=== PATIENT | female | born 1970 | race Caucasian/White ===

== ENCOUNTER → 2017-05-09 | Outpatient (CLI) | payer BC ==
--- NOTE | 2017-05-09 15:35 | US ---
EXAMINATION TYPE: US thyroid st tissue head/neck DATE OF EXAM: 05/09/2017 COMPARISON: NONE CLINICAL HISTORY: E079 THYROID DISORDER. Abnormal labs per patient GLAND SIZE: Right Lobe: 3.7 x 1.3 x 1.5 cm Overall Parenchyma: homogenous Left Lobe: 3.7 x 1.4 x 1.4 cm Overall Parenchyma: homogeneous Isthmus Thickness: 0.3 cm NODULES RIGHT: # of nodules measured on right: 0 LEFT: # of nodules measured on left: 0 ISTHMUS: # of nodules measured in the isthmus: 0 Bilateral neck scanned, no evidence of lymphadenopathy. IMPRESSION: Unremarkable thyroid ultrasound. No discrete nodule, no thyroid enlargement, no heterogeneity and no hypervascularity.
== END | disposition home or self-care (01) ==
LOC: RADUSWWP 14:48
PROVIDERS: ATTEND Family Medicine
DX: E07.9 Disorder of thyroid, unspecified (principal)
CPT/HCPCS: 76536

== ENCOUNTER 2019-09-11 09:34 | Emergency (ER) | payer BC ==
[2019-09-11 09:39] VITALS: BP 117/81; PULSE 69; RESP 18; TEMP 97.4
[2019-09-11] MEDS ORDERED: KETOROLAC 30 MG/ML 1 ML VIAL IVP STA (09:56)
[2019-09-11] MEDS ORDERED: ONDANSETRON 4 MG/2 ML VIAL IVP STA (09:56)
[2019-09-11] MEDS ORDERED: SODIUM CHLORIDE 0.9% 1,000 ML IV STA ×2 (09:56)
--- NOTE | 2019-09-11 10:06 | ED ---
Abdominal Pain HPI - General Chief Complaint: Abdominal Pain Stated Complaint: Side Pain Time Seen by Provider: 09/11/19 09:44 Source: patient, RN notes reviewed, old records reviewed Mode of arrival: ambulatory Limitations: no limitations - History of Present Illness Initial Comments: Elina is a 49-year-old female who presents emergency department today with right- sided lower abdominal pain with radiation towards right flank worsening over the past week. She reports that she's been having intermittent pains like this for the past 2 years. She reports that she has not had a menstrual period in many years after having no pressure procedure done. She states that she's had no vomiting but does feel nauseated. She denies any changes in urination and did have a bowel movement yesterday. - Related Data Home Medications Medication Instructions Recorded Confirmed Multivitamins, Thera [Multivitamin 1 tab PO DAILY 09/11/19 09/11/19 (formulary)] Oxybutynin ER [Ditropan Xl] 15 mg PO DAILY 09/11/19 09/11/19 Previous Rx's Medication Instructions Recorded Polyethylene Glycol 3350 [Miralax] 17 gm PO ONCE #527 gm 09/11/19 bisacodyL [Dulcolax] 10 mg PO ONCE #12 tablet. 09/11/19 Allergies Allergy/AdvReac Type Severity Reaction Status Date / Time codeine Allergy Swelling Verified 09/11/19 10:40 Review of Systems ROS Statement: Those systems with pertinent positive or pertinent negative responses have been documented in the HPI. ROS Other: All systems not noted in ROS Statement are negative. Past Medical History Additional Past Medical History / Comment(s): MS History of Any Multi-Drug Resistant Organisms: None Reported Past Surgical History: Appendectomy, Section Additional Past Surgical History / Comment(s): exploratory Lap Past Psychological History: No Psychological Hx Reported Smoking Status: Never smoker Past Alcohol Use History: None Reported Past Drug Use History: None Reported General Exam - General Exam Comments Initial Comments: 49-year-old female. Alert and oriented. No distress. Limitations: no limitations General appearance: alert, in no apparent distress Head exam: Present: atraumatic, normocephalic, normal inspection Eye exam: Present: normal appearance, PERRL, EOMI. Absent: scleral icterus, conjunctival injection, periorbital swelling ENT exam: Present: normal exam, mucous membranes moist Neck exam: Present: normal inspection. Absent: tenderness, meningismus, lymphadenopathy Respiratory exam: Present: normal lung sounds bilaterally. Absent: respiratory distress, wheezes, rales, rhonchi, stridor Cardiovascular Exam: Present: regular rate, normal rhythm, normal heart sounds. Absent: systolic murmur, diastolic murmur, rubs, gallop, clicks GI/Abdominal exam: Present: soft, tenderness (RLQ tenderness), normal bowel sounds. Absent: distended, guarding, rebound, rigid Extremities exam: Present: normal inspection, full ROM, normal capillary refill. Absent: tenderness, pedal edema, joint swelling, calf tenderness Back exam: Present: normal inspection Neurological exam: Present: alert, oriented X3, CN II-XII intact Course Vital Signs 09/11/19 09/11/19 09/11/19 09:36 09:39 10:39 Temperature 97.4 F L Pulse Rate 69 Respiratory 18 18 18 Rate Blood Pressure 117/81 O2 Sat by Pulse 100 Oximetry 09/11/19 11:39 Temperature Pulse Rate Respiratory 18 Rate Blood Pressure O2 Sat by Pulse Oximetry Medical Decision Making - Medical Decision Making 49-year-old female presents emergency department today for evaluation for concern for right-sided abdominal pain. She's been having intermittent pain for 2 years. This pain has been worse over the past 2 weeks. Labs reviewed today and unremarkable. Due to persistent pain, CT abdomen pelvis was completed. This was negative for any acute findings related to patient's symptoms of pain. I discussed patient's pelvic primary care doctor. Discussed return parameters. - Lab Data Result diagrams: 09/11/19 10:11 09/11/19 09:56 Lab Results 09/11/19 09/11/19 09/11/19 Range/Units 09:56 10:11 10:11 WBC 9.2 (3.8-10.6) k/uL RBC 5.03 (3.80-5.40) m/uL Hgb 14.6 (11.4-16.0) gm/dL Hct 43.1 (34.0-46.0) % MCV 85.7 (80.0-100.0) fL MCH 29.0 (25.0-35.0) pg MCHC 33.8 (31.0-37.0) g/dL RDW 12.4 (11.5-15.5) % Plt Count 355 (150-450) k/uL Neutrophils % 72 % Lymphocytes % 21 % Monocytes % 4 % Eosinophils % 1 % Basophils % 1 % Neutrophils # 6.6 (1.3-7.7) k/uL Lymphocytes # 1.9 (1.0-4.8) k/uL Monocytes # 0.4 (0-1.0) k/uL Eosinophils # 0.1 (0-0.7) k/uL Basophils # 0.1 (0-0.2) k/uL PT 11.4 (9.0-12.0) sec INR 1.1 (<1.2) APTT 24.8 (22.0-30.0) sec Sodium 139 (137-145) mmol/L Potassium 4.3 (3.5-5.1) mmol/L Chloride 104 (98-107) mmol/L Carbon Dioxide 27 (22-30) mmol/L Anion Gap 8 mmol/L BUN 11 (7-17) mg/dL Creatinine 0.66 (0.52-1.04) mg/dL Est GFR (CKD-EPI)AfAm >90 (>60 ml/min/1.73 sqM) Est GFR (CKD-EPI)NonAf >90 (>60 ml/min/1.73 sqM) Glucose 98 (74-99) mg/dL Plasma Lactic Acid Sha (0.7-2.0) mmol/L Calcium 10.0 (8.4-10.2) mg/dL Total Bilirubin 0.5 (0.2-1.3) mg/dL AST 20 (14-36) U/L ALT 14 (4-34) U/L Alkaline Phosphatase 54 (38-126) U/L Total Protein 7.8 (6.3-8.2) g/dL Albumin 4.8 (3.5-5.0) g/dL Amylase 76 (30-110) U/L Lipase 87 (23-300) U/L Urine Color Urine Appearance (Clear) Urine pH (5.0-8.0) Ur Specific Rocky (1.001-1.035) Urine Protein (Negative) Urine Glucose (UA) (Negative) Urine Ketones (Negative) Urine Blood (Negative) Urine Nitrite (Negative) Urine Bilirubin (Negative) Urine Urobilinogen (<2.0) mg/dL Ur Leukocyte Esterase (Negative) Urine RBC (0-5) /hpf Urine WBC (0-5) /hpf Ur Squamous Epith Cells (0-4) /hpf Urine Bacteria (None) /hpf 09/11/19 09/11/19 Range/Units 10:11 10:11 WBC (3.8-10.6) k/uL RBC (3.80-5.40) m/uL Hgb (11.4-16.0) gm/dL Hct (34.0-46.0) % MCV (80.0-100.0) fL MCH (25.0-35.0) pg MCHC (31.0-37.0) g/dL RDW (11.5-15.5) % Plt Count (150-450) k/uL Neutrophils % % Lymphocytes % % Monocytes % % Eosinophils % % Basophils % % Neutrophils # (1.3-7.7) k/uL Lymphocytes # (1.0-4.8) k/uL Monocytes # (0-1.0) k/uL Eosinophils # (0-0.7) k/uL Basophils # (0-0.2) k/uL PT (9.0-12.0) sec INR (<1.2) APTT (22.0-30.0) sec Sodium (137-145) mmol/L Potassium (3.5-5.1) mmol/L Chloride (98-107) mmol/L Carbon Dioxide (22-30) mmol/L Anion Gap mmol/L BUN (7-17) mg/dL Creatinine (0.52-1.04) mg/dL Est GFR (CKD-EPI)AfAm (>60 ml/min/1.73 sqM) Est GFR (CKD-EPI)NonAf (>60 ml/min/1.73 sqM) Glucose (74-99) mg/dL Plasma Lactic Acid Sha 0.7 (0.7-2.0) mmol/L Calcium (8.4-10.2) mg/dL Total Bilirubin (0.2-1.3) mg/dL AST (14-36) U/L ALT (4-34) U/L Alkaline Phosphatase (38-126) U/L Total Protein (6.3-8.2) g/dL Albumin (3.5-5.0) g/dL Amylase (30-110) U/L Lipase (23-300) U/L Urine Color Light Yellow Urine Appearance Clear (Clear) Urine pH 6.5 (5.0-8.0) Ur Specific Rocky 1.006 (1.001-1.035) Urine Protein Negative (Negative) Urine Glucose (UA) Negative (Negative) Urine Ketones Trace H (Negative) Urine Blood Negative (Negative) Urine Nitrite Negative (Negative) Urine Bilirubin Negative (Negative) Urine Urobilinogen <2.0 (<2.0) mg/dL Ur Leukocyte Esterase Trace H (Negative) Urine RBC 1 (0-5) /hpf Urine WBC 3 (0-5) /hpf Ur Squamous Epith Cells 1 (0-4) /hpf Urine Bacteria Occasional H (None) /hpf - Radiology Data Radiology results: report reviewed CT abdomen shows no acute findings to account for patient's clinical symptoms of right-sided abdominal pain. Disposition Clinical Impression: Right sided abdominal pain Disposition: HOME SELF-CARE Condition: Good Instructions (If sedation given, give patient instructions): Abdominal Pain (ED) Additional Instructions: Please use medication as discussed, continue stool softeners to see if this will help with symptoms. Please follow up with family doctor if symptoms have not improved over the next two days. Please return to the emergency room if your symptoms increase or worsen or for any other concerns. Prescriptions: bisacodyL [Dulcolax] 10 mg PO ONCE #12 tablet. Polyethylene Glycol 3350 [Miralax] 17 gm PO ONCE #527 gm Is patient prescribed a controlled substance at d/c from ED?: No Referrals: Migue Jeffery DO [Primary Care Provider] - 1-2 days Time of Disposition: 12:08
[2019-09-11 10:25] LABS: Basophils # (A) 0.1 k/uL (0-0.2); Basophils % (A) 1 %; Eosinophils # (A) 0.1 k/uL (0-0.7); Eosinophils % (A) 1 %; HCT 43.1 % (34.0-46.0); HGB 14.6 gm/dL (11.4-16.0); Lymphocytes # (A) 1.9 k/uL (1.0-4.8); Lymphocytes % (A) 21 %; MCHC 33.8 g/dL (31.0-37.0); MCV 85.7 fL (80.0-100.0); Mean Platelet Volume 7.1; Monocytes # (A) 0.4 k/uL (0-1.0); Monocytes % (A) 4 %; Neutrophils # (A) 6.6 k/uL (1.3-7.7); Neutrophils % (A) 72 %; Platelet Count 355 k/uL (150-450); RBC 5.03 m/uL (3.80-5.40); RDW 12.4 % (11.5-15.5); WBC 9.2 k/uL (3.8-10.6)
[2019-09-11 10:33] LABS: ALT 14 U/L (4-34); AST 20 U/L (14-36); African American GFR (CKD) >90 (>60 ml/min/1.73 sqM); Albumin 4.8 g/dL (3.5-5.0); Alkaline Phosphatase 54 U/L (38-126); Amylase 76 U/L (30-110); Anion Gap 8 mmol/L; Blood Urea Nitrogen 11 mg/dL (7-17); Carbon Dioxide 27 mmol/L (22-30); Chloride 104 mmol/L (98-107); Glucose 98 mg/dL (74-99); Non-African American GFR(CKD) >90 (>60 ml/min/1.73 sqM); Potassium 4.3 mmol/L (3.5-5.1); Sodium 139 mmol/L (137-145); Total Bilirubin 0.5 mg/dL (0.2-1.3); Total Protein 7.8 g/dL (6.3-8.2)
[2019-09-11 10:38] LABS: INR 1.1 (<1.2); Partial Thromboplastin Time 24.8 sec (22.0-30.0); Prothrombin Time 11.4 sec (9.0-12.0)
[2019-09-11 10:49] LABS: Appearance,Urine Clear (Clear); Bacteria,Urine Occasional /hpf; Bilirubin,Urine Negative (Negative); Blood,Urine Negative (Negative); Color,Urine Light Yellow; Glucose,Urine (UA) Negative (Negative); Ketones,Urine Trace (Negative); Leukocyte Esterase,Urine Trace (Negative); Nitrite,Urine Negative (Negative); PH, Urine 6.5 (5.0-8.0); Protein,Urine Negative (Negative); RBC,Urine 1 /hpf (0-5); Specific Gravity,Urine 1.006 (1.001-1.035); Squamous Epithelial Cell,Urine 1 /hpf (0-4); Urobilinogen,Urine <2.0 mg/dL (<2.0); WBC,Urine 3 /hpf (0-5)
--- NOTE | 2019-09-11 11:51 | CT ---
EXAMINATION TYPE: CT abdomen pelvis w con DATE OF EXAM: 09/11/2019 HISTORY: Right abdominal pain CT DLP: 764.5mGycm Automated Exposure Control for Dose Reduction was Utilized. CONTRAST: CT scan of the abdomen and pelvis is performed without oral but with IV Contrast, patient injected wi th 100 ml mL of Isovue 300. COMPARISON: CT abdomen and pelvis July 01, 2015 FINDINGS: LUNG BASES: No significant abnormality is appreciated. LIVER/GB: Occasional tiny subcentimeter hypodense lesions throughout the liver too small to further c haracterize presumed benign. PANCREAS: No significant abnormality is seen. SPLEEN: No significant abnormality is seen. ADRENALS: No significant abnormality is seen. KIDNEYS: No significant abnormality is seen. BOWEL: No suspicious small or large bowel dilatation. UTERUS/ADNEXA: Anteverted uterus. A few scattered pelvic phleboliths. LYMPH NODES: No greater than 1cm abdominal or pelvic lymph nodes are appreciated. OSSEOUS STRUCTURES: Moderate disc space narrowing L3-L4 level redemonstrated. Right-sided pars defect L5 level. No spondylolisthesis. OTHER: No significant additional abnormality is seen. IMPRESSION: No significant new or acute finding is seen to account for patient's clinical symptoms of right-sided pain.
[2019-09-11] MEDS ORDERED: MORPHINE SULFATE 4 MG/ML SYRINGE IVP STA (12:23)
== END 2019-09-11 12:35 | disposition home or self-care (01) ==
LOC: EC 09:34
DX: R10.31 Right lower quadrant pain (principal); R11.0 Nausea; Z90.49 Acquired absence of other specified parts of digestive tract; Z79.899 Other long term (current) drug therapy; Z88.5 Allergy status to narcotic agent
CPT/HCPCS: 36415; 80053; 82150; 83605; 83690; 85025; 85610; 85730; 81001; 74177; 99285; 96374; 96375 ×2; 96361 ×2; J2270; J2405; J1885; Q9967

== ENCOUNTER → 2019-10-17 | Outpatient (CLI) | payer BC ==
--- NOTE | 2019-10-19 17:14 | MR ---
EXAMINATION TYPE: MR brain/lspine wo/w con DATE OF EXAM: 10/17/2019 COMPARISON: None, no prior MRIs at this location HISTORY: MS follow-up, RUE/LLE numbness, LBP radiating into rt leg CONTRAST: Performed utilizing 6.5 mL intravenous Gadavist gadolinium contrast. TECHNIQUE: Multiplanar, multisequence imaging of the brain is performed on a 3.0 Daniela magnet. Demye linating disease protocol with additional Sagittal Flair sequence is performed. Study is performed wi thin 24 hours of arrival to the hospital. FINDINGS: T2 White Matter Lesions Present : Yes Approximate Number of Lesions: 3, 2 right 1 left Locations Identified : Right periventricular region, subcortical right parietal lobe left periventric ular centrum semiovale Size of Largest Lesion(s): 1. 0.4 x 0.4 x 0.4 cm. Location: Right periventricular parietal lobe Sequence 1701 Image 20 (axial) and Sequence 1801 Image 25 (sagittal). 2. 0.3 x 0.3 x 0.3 cm. Location: Left supra periventricular Sequence 1701 Image 21 (axial) and Sequ ence 1801 Image 17 (sagittal). Enhancing Lesion(s) Present: No Change from Prior: Not applicable Diffusion-weighted imaging is performed. No abnormal hyperintensity is present to suggest an acute i ntracranial infarct or acute ischemic change. Ventricles and sulci are appropriate for the patient age. There are no abnormal extra-axial fluid collections. The ventricular system and cisternal spaces are normal in size and appearance. The brain volume is age appropriate. The craniocervical junction yina ears within normal limits. The dural venous sinuses appear patent. No abnormal enhancement is present on post contrast images. . The visualized sinuses are clear. Visu alized orbits are unremarkable. IMPRESSION: 1. 3 punctate white matter changes are nonspecific and not out of proportion to the patient age. James maddi headaches and microvascular ischemic change could be considered. Multiple sclerosis Lyme diseas e is not excluded EXAMINATION TYPE: MR brain/lspine wo/w con DATE OF EXAM: 10/17/2019 COMPARISON: None HISTORY: MS follow-up, RUE/LLE numbness, LBP radiating into rt leg CONTRAST: 6.5 mL intravenous Gadavist. TECHNIQUE: Multiplanar, multisequence images of the lumbar spine were acquired. FINDINGS: L5-S1: No significant disc bulge or disc herniation. No spinal canal stenosis. No foraminal stenosi s. . L4-L5: No significant disc bulge or disc herniation. No spinal canal stenosis. No foraminal stenosi s. . L3-L4: There is loss of disc height is level. Residual disc bulge has anterior thecal sac flattening. Facets appear normal. No AP spinal canal stenosis present. Severe right and mild left foraminal sten osis present. Correlate with right radicular symptoms. Endplate changes are present L2-L3: No significant disc bulge or disc herniation. No spinal canal stenosis. No foraminal stenosi s. . L1-L2: No significant disc bulge or disc herniation. No spinal canal stenosis. No foraminal stenosi s. . T12-L1: No significant disc bulge or disc herniation. No spinal canal stenosis. No foraminal stenos is. No abnormal enhancement. No signal abnormality within the distal spinal cord is evident suggest multi ple sclerosis. IMPRESSION: 1. Degenerative disc changes with loss of disc height and residual disc bulge with moderate anterior thecal sac flattening. Severe right foraminal stenosis is present. Correlate with right L3 radicular symptoms
== END | disposition home or self-care (01) ==
LOC: RADMRIMAIN 20:02
PROVIDERS: ATTEND Family Medicine
DX: G43.909 Migraine, unspecified, not intractable, without status migrainosus (principal); M48.061 Spinal stenosis, lumbar region without neurogenic claudication; M51.26 Other intervertebral disc displacement, lumbar region; M51.36 Other intervertebral disc degeneration, lumbar region; M53.86 Other specified dorsopathies, lumbar region
CPT/HCPCS: 70553; 72158; A9585

== ENCOUNTER → 2019-12-08 | Outpatient (CLI) | payer BC | END | disposition home or self-care (01) | LOC: LABWHC1 13:14 | PROVIDERS: ATTEND Family Medicine | DX: R10.84 Generalized abdominal pain (principal); Z20.828 Contact with and (suspected) exposure to other viral communicable diseases | CPT/HCPCS: U0003; C9803 ==

== ENCOUNTER → 2020-03-15 | Outpatient (CLI) | payer BC ==
[2020-03-15 16:17] LABS: HCT 39.2 % (34.0-46.0); HGB 13.3 gm/dL (11.4-16.0); MCHC 33.8 g/dL (31.0-37.0); MCV 85.6 fL (80.0-100.0); Mean Platelet Volume 6.6; Platelet Count 308 k/uL (150-450); RBC 4.58 m/uL (3.80-5.40); RDW 12.4 % (11.5-15.5); WBC 11.1 k/uL (3.8-10.6)
[2020-03-15 16:20] LABS: Appearance,Urine Clear (Clear); Bilirubin,Urine Negative (Negative); Blood,Urine Negative (Negative); Color,Urine Light Yellow; Glucose,Urine (UA) Negative (Negative); Ketones,Urine Negative (Negative); Leukocyte Esterase,Urine Negative (Negative); Nitrite,Urine Negative (Negative); Protein,Urine Negative (Negative); Specific Gravity,Urine 1.009 (1.001-1.035); Urobilinogen,Urine <2.0 mg/dL (<2.0)
[2020-03-15 16:30] LABS: INR 1.1 (<1.2); Partial Thromboplastin Time 24.5 sec (22.0-30.0); Prothrombin Time 11.4 sec (9.0-12.0)
[2020-03-15 16:32] LABS: African American GFR (CKD) >90 (>60 ml/min/1.73 sqM); Anion Gap 9 mmol/L; Blood Urea Nitrogen 13 mg/dL (7-17); Calcium 9.5 mg/dL (8.4-10.2); Carbon Dioxide 25 mmol/L (22-30); Chloride 105 mmol/L (98-107); Glucose 88 mg/dL (74-99); Non-African American GFR(CKD) >90 (>60 ml/min/1.73 sqM); Sodium 139 mmol/L (137-145)
--- NOTE | 2020-03-16 08:10 | XR ---
EXAMINATION TYPE: XR chest 2V DATE OF EXAM: 03/15/2020 COMPARISON: Chest x-ray 09/15/2015 HISTORY: Preop spinal surgery, Z01.818 TECHNIQUE: Frontal and lateral views of the chest are obtained. FINDINGS: There is no focal air space opacity, pleural effusion, or pneumothorax seen. The cardiac silhouette size is within normal limits. The osseous structures are intact, there is a slight spina l curvature, thoracic spondylosis is present. IMPRESSION: No acute cardiopulmonary process.
== END | disposition home or self-care (01) ==
LOC: LABPAT 14:37
PROVIDERS: ATTEND Orthopaedic Surgery Orthopaedic Surgery of the Spine
DX: Z01.818 Encounter for other preprocedural examination (principal); M48.00 Spinal stenosis, site unspecified; Z01.812 Encounter for preprocedural laboratory examination
CPT/HCPCS: 71046; 80048; 81003; 85027; 85610; 85730; 87070; 93005

== ENCOUNTER 2020-03-31 09:58 | Inpatient (IN) | payer BC ==
[2020-03-26 14:27] VITALS: BMI 27.3
[~2020-03-31 09:58] MED LIST: DEXAMETHASONE SOD PHOSPHATE 4 MG/ML 1 ML VIAL IV ONE; LIDOCAINE 1% (10MG/ML) FOR IV START INTRADERMA PRN; MIDAZOLAM 2 MG/2 ML VIAL IV PRN; ceFAZolin 1,000 MG in SODIUM CHLORIDE 0.9% IRRIGATIO 1,000 ML IRRIGATION PRN
[2020-03-31] MEDS: LACTATED RINGERS 1,000 ML IV SCH ×2 (10:28→18:23)
[2020-03-31] MEDS ORDERED: ONDANSETRON 4 MG/2 ML VIAL ONE (10:52)
[2020-03-31] MEDS ORDERED: SCOPOLAMINE 1.5MG/72HR PATCH TRANSDERM ONE (11:03)
[2020-03-31] MEDS ORDERED: PHENYLEPHRINE-0.9% NACL SYG 1,000 MCG/10 ML SYRINGE ONE (11:07)
[2020-03-31] MEDS ORDERED: fentaNYL (PF) 50 MCG/ML 2 ML AMP ONE (11:07)
[2020-03-31] MEDS ORDERED: MIDAZOLAM 2 MG/2 ML VIAL ONE (11:07)
[2020-03-31] MEDS ORDERED: PROPOFOL 10 MG/ML 20 ML VIAL IV ONE (11:07)
[2020-03-31] MEDS ORDERED: HYDROmorphone (PF) 1 MG/ML ONE (11:07)
[2020-03-31] MEDS ORDERED: NEOSTIGMINE 1 MG/ML 10 ML VIAL ONE (11:07)
[2020-03-31] MEDS ORDERED: LIDOCAINE 1% INJ 10MG/ML (20 ML MDV) ONE (11:07)
[2020-03-31] MEDS ORDERED: GLYCOPYRROLATE 0.2 MG/ML 2 ML VIAL ONE (11:07)
[2020-03-31] MEDS ORDERED: SUCCINYLCHOLINE CHLORIDE 100 MG/5 ML SYR IV ONE (11:07)
[2020-03-31] MEDS ORDERED: ROCURONIUM 10 MG/ML (5 ML VIAL) IV ONE (11:07)
[2020-03-31] MEDS ORDERED: THROMBIN (BOVINE) 5,000 UNIT VIAL TOPICAL ONE (11:37)
[2020-03-31] MEDS ORDERED: GELATIN SPONGE,ABSORB (LARGE) 1 EACH SPONGE TOPICAL ONE (11:37)
[2020-03-31] MEDS ORDERED: LIDOCAINE 2%-EPI 1:100,000 20 ML VIAL SQ ONE (11:38)
[2020-03-31] MEDS ORDERED: BUPIVACAINE (PF) 0.25% 30 ML VIAL SQ ONE (11:38)
[2020-03-31] MEDS ORDERED: LACTATED RINGERS 1,000 ML IV ONE (13:33)
--- NOTE | 2020-03-31 14:14 | FL ---
EXAMINATION TYPE: FL guidance operating room DATE OF EXAM: 03/31/2020 HISTORY: Fluoroscopy time 27 seconds of fluoroscopy provided. IMPRESSION: 1. Fluoroscopy time.
[2020-03-31] MEDS ORDERED: HYDROmorphone 0.5 MG/0.5 ML SYRINGE IVP PRN (14:17)
[2020-03-31] MEDS ORDERED: BENZOCAINE/MENTHOL LOZENG 1 EACH LOZENGE MUCOUS MEM PRN (14:17)
--- NOTE | 2020-03-31 14:17 | XR ---
EXAM TYPE: LUMBAR SPINE X RAY SERIES COMPARISON: NONE HISTORY: Postsurgical TECHNIQUE: 4 views are submitted. FINDINGS: Limited views are submitted intraoperatively with reduced resolution demonstrating postsurgical edmondson ges which appear to be in near anatomic alignment. IMPRESSION: 1. Postop
[2020-03-31] MEDS ORDERED: MEPERIDINE 50 MG/ML SYRINGE IVP ONE ×2 (14:18→14:26)
[2020-03-31] MEDS ORDERED: HYDROcodone/APAP 5-325MG 1 EACH TAB PO PRN (14:18)
--- NOTE | 2020-03-31 14:25 | P.OP ---
Date of Procedure: 03/31/20 Preoperative Diagnosis: Degenerative scoliosis, asymmetric disc degeneration L3 4, spinal stenosis, low back pain, lower extremity radiculopathy, facet arthropathy Postoperative Diagnosis: Same Anesthesia: GETA Pathology: none sent Condition: stable Disposition: PACU Description of Procedure: DESCRIPTION OF PROCEDURE(S): BRIEF OPERATIVE NOTE Preoperative Diagnosis: Degenerative scoliosis , spinal stenosis L3 4 , lower extremity radiculopathy, lower extremity weakness, facet arthrosis, low back pain, degenerative disc disease Postoperative Diagnosis: Same Procedure: Laminectomy and decompression L3 [address] navigation aided Minimally invasive Posterior lateral decompression and facet fusion L3 4 Minimally invasive Transforaminal lumbar interbody fusion for a 360 fusion L3 4 Discectomy for decompression L3 4 Placement of interbody graft L3 4 Use of computer navigation for fusion Local autogenous bone grafting Aspiration of bone marrow from the vertebral body pedicle L3 on the right Use of bone graft extenders Surgeon: Dr. Dao [employer] Protector: Blake JAY who is present throughout the entire the case persistence during positioning, dissection, exposure, visualization, and all crucial elements of the case as well as closure. Anesthesia: General anesthesia per Estimated blood loss: Approximately 200 mL Complications: None apparent Components implanted: K2M minimally invasive Marion pedicle screw system withscrews measuring 6.5 mm in diameter to rods one . Pyranese peek interbody cage with 10 mL of osteo amp bio4 bone graft substitute and 30 mL of the BX bone fibers to supplement the local autogenous bone graft and bone marrow aspirate Disposition: To recovery room in good stable condition. OPERATIVE INDICATIONS The patient has had severe issues at their lower extremity in her lower back over the past several years with significant worsening over the past several months. Over the past few months the patient had pain at her back and her left lower extremity. The patient is having severe radicular symptoms at her right lower extremity with weakness. The patient is having significant pain in her back. They are unable to obtain any comfort. She was found have asymmetric disc degeneration with degenerative scoliosis and stenosis at L3 4 which collated well with her low back and lower extremity symptoms. We did aggressive conservative treatment with medications therapy and interventional pain management however she was not having any relief. The patient also showed evidence of a listhesis with some dynamic instability. The patient has been through conservative treatment. We discussed various treatment options including surgery, and the patient wishes to proceed with surgery We discussed the risk, patient's alternatives and benefits of surgery including but not limited to, risk of bleeding risk of infection, risk of need for further surgery, risk of decreased, loss of motion, muscle function, malunion nonunion, hardware failure, nerve damage, paralysis, heart attack, blindness and . They understood issues with the current pandemic and the possibility of exposure. OPERATIVE SUMMARY After discussing all the risks, patient alternatives and benefits at length, the patient elected to proceed with surgical intervention, signed informed consent, and presented for their procedure. The patient was seen and examined in the preoperative holding area and the surgical site was marked. The patient was given antibiotics and brought to the operating room. The patient was sedated and intubated by anesthesia in standard fashion. The patient was positioned on to the operating room table in a prone position on the appropriate frame which was well-padded and well molded. We were careful to pad any bony prominences and pressure points. We were careful to maintain the patient's cervical spine and good neutral alignment and position throughout. The patient was prepped and draped in a normal standard fashion. An appropriate timeout and keystone protocol performed. We were able to proceed with the surgery. The local wound area was infiltrated with local anesthetic. Over the right iliac crest I was able to make small stab incisions and establish a guidepin screw fixation to the iliac crest 2. I was able place the computer referencing device over the guidepins to establish an appropriate reference point for the Ziem CT navigation. We then were able to place patient in an appropriate drape and do a navigation spin for visualization and 3-D reconstruction of the lumbar spine. I was able utilize C-arm guidance and ivy gation to establish appropriate position over the pedicles bilaterally at the appropriate levels at L3 4 . With the appropriate levels confirmed was able to make small stab incisions over the appropriate pedicle sites bilaterally. Utilizing the computer navigation device I was able to establish bony landmarks at the right iliac crest for a bony reference point for the navigation device. I was able to establish a Jamshidi needle over the lateral aspect of the pedicle and advanced the trocar into the pedicle being careful not to breech superiorly inferiorly medially or laterally using computer navigation device. Position was confirmed regularly with AP and lateral images on C-arm and with the computer navigation device at the appropriate levels bilaterally. I was able to establish the trocar into the pedicle appropriately into the posterior aspect of the vertebral body bilaterally at the appropriate levels of L3 and L4. This was done at each of the pedicle positions and each of the vertebrae. At L3 on the right and withdrew approximately I was able to take approximately 25 mL of bone aspiration for use later in the case to supplement the allograft and autograft bone. I was able place the guidewire into the trocar and into the vertebral body appropriately under C-arm guidance. Dissection was taken down over the wire to the appropriate starting position for the screw placed. The appropriate length screw was chosen, threaded over the guidewire and screwed appropriately into the pedicle and vertebral body under C-arm guidance in excellent alignment and position with good bony purchase. This is done at each of the screw sites at the appropriate levels at L3 and L4. With the screws intact I extended the incision to connect the screw hole sites on the most symptomatic side on the left. I dissected down to establish access over the pars and lamina to the base of the spinous process. I was able to expose the facet joint. The capsule the facet was taken down and showed some facet arthrosis at the joint. I was able to use a combination of curettes and Kerrison rongeurs and a high-speed drill to take down the facet joint and do a facetectomy. I was able get excellent foraminal decompression and central decompression with undermining across midline to perform a laminectomy centrally and contralaterally. As able get good central decompression. The ligamentum flavum was taken down to further decompress centrally and at bilateral neural foramen. I was able to expose the disc space and visualize the traversing nerve root. Note was made of some disc protrusion and disc herniation that was abutting the traversing nerve root at the level causing further compression of the nerve root. I was able to establish a annulotomy at the appropriate level protecting soft tissue and neural structures. Note was made of some severe disc desiccation at the disc. The disc had asymmetric degeneration but I was able to get good discectomy all the way across the disc space. I performed a complete discectomy with accommodation of curettes and rasps and scrapers. I was able get good endplate preparation at the disc space. I sized for the appropriate size interbody spacer protecting the soft tissue and neural structures. The wound was copiously irrigated and suctioned dry. There is no evidence of any dural tear or leak. I was able to pack the disc space with local autogenous bone graft as well as a small amount of bone graft which was also placed into the interbody cage itself. Protecting the soft tissue structures and neural structures I was able place the interbody cage in good alignment and good position with good fit and fill at the interbody space. I was able to position the interbody cage at the narrowest part of the disc in order get good realignment and balancing of the vertebrae alignment. Position was confirmed with C-arm guidance. Good hemostasis maintained. There is no evidence of any dural tear or leak. The wound was irrigated and suctioned dry. With the hardware intact, intraoperative C-arm imaging was again taken which showed good alignment and position of the hardware at the appropriate levels. We were then able to measure, contour and place the rods and appropriate hardware bilaterally. I was able to place capcrews, tighten them down, and torque them with the torque screwdriver appropriately. With this intact I was able to place the local autogenous bone graft with additional bone graft enhancer as necessary into the posterior lateral gutters over the decorticated transverse processes and facet joints on the contralateral side. The remainder of the bone graft was placed over the facet joint on the contralateral side after taking down the facet joint capsule. With the bone graft intact, a stabl e construct, and good decompression at the appropriate levels, we were able to proceed with closure. Good hemostasis was maintained. There is no evidence of dural tear or leak. The fascia was closed for a watertight closure. he subcuticular tissue was closed with absorbable suture. The wound was cleaned and dried and dressed with the appropriate dressing. The drapes were broken down. The patient was gently rolled back onto their hospital bed being careful to maintain their cervical spine and good neutral alignment and position. They were woken up by anesthesia, extubated, and brought to the recovery room in good stable condition. The patient will be admitted to the hospital for appropriate postoperative care, medical management and monitoring. We will continue to follow them closely about the postoperative course.
[2020-03-31] MEDS: HYDROmorphone 0.5 MG/0.5 ML SYRINGE IVP PRN ×4 (14:43→15:10)
[2020-03-31] MEDS ORDERED: fentaNYL (PF) 50 MCG/ML 2 ML AMP IVP ONE (15:26)
[2020-03-31] MEDS ORDERED: diphenhydrAMINE 50 MG/ML 1 ML VIAL IVP ONE (15:39)
[2020-03-31] MEDS: SODIUM CHLORIDE 0.9% 1,000 ML IV SCH (17:54)
[2020-03-31] MEDS: HYDROcodone/APAP 5-325MG 1 EACH TAB PO PRN ×2 (19:10→23:03)
[2020-03-31] MEDS: HYDROmorphone 1 MG/ML 1 ML SYRINGE IVP PRN ×2 (20:13→23:58)
[2020-03-31] MEDS: diazePAM 5 MG TAB PO PRN (23:07)
[2020-04-01] MEDS: CYCLOBENZAPRINE 10 MG TAB PO PRN ×2 (02:45→17:48)
[2020-04-01] MEDS: HYDROcodone/APAP 5-325MG 1 EACH TAB PO PRN ×3 (03:12→17:49)
[2020-04-01] MEDS: HYDROmorphone 1 MG/ML 1 ML SYRINGE IVP PRN ×3 (04:55→20:33)
[2020-04-01] MEDS: SODIUM CHLORIDE 0.9% 1,000 ML IV SCH ×2 (04:55→17:48)
[2020-04-01] MEDS: SENNOSIDES-DOCUSATE SODIUM 1 EACH TAB PO SCH (08:03)
--- NOTE | 2020-04-01 08:40 | P.PN ---
Progress Note - Text Progress Note Date: 04/01/20 Postoperative day #1 Patient is seen and examined today at bedside. The patient has some pain around the surgical site as expected. Pain is being controlled with medication. She had some significant spasm overnight and this seems to be settling down with her muscle relaxants. She still has her Maguire intact Physical Exam Afebrile with stable vital signs Abdomen is soft nontender. Chest has good excursion deep and space expiration The incision site is clean dry and intact. No erythema there is no purulence. Extremities have not had neurologic change from prior to surgery. She has sustained dorsiflexion plantarflexion and EHL intact Calves and thighs were soft nontender without evidence of DVT. Assessment/Plan Postoperative day #1 status post minimally invasive decompression and fusion L34 for her degenerative scoliosis with stenosis and lower extremity radiculopathy Patient is progressing as expected from the surgery. She is having some spasms in her back which hopefully will resolve appropriately. We will continue to increase the patient's mobilization with therapy. We will continue pain control with oral or IV medications. She'll likely need a day or 2 more before she is able to mobilize independently and control her pain well enough to be home . We'll continue to follow patient closely.
[2020-04-01 10:32] LABS: Basophils # (A) 0.05 X 10*3/uL (0.00-0.10); Basophils % (A) 0.3 %; Eosinophils # (A) 0 X 10*3/uL (0.04-0.35); Eosinophils % (A) 0 %; HGB 11.6 g/dL (12.0-15.0); Lymphocytes # (A) 1.67 X 10*3/uL (0.90-5.00); Lymphocytes % (A) 11.7 %; MCH 28.8 pg (27.0-32.0); MCHC 33.1 g/dL (32.0-37.0); MCV 86.8 fL (80.0-97.0); Mean Platelet Volume 9.8 fL (9.5-12.2); Monocytes # (A) 1.37 X 10*3/uL (0.20-1.00); Monocytes % (A) 9.6 %; Neutrophils # (A) 11.14 X 10*3/uL (1.80-7.70); Neutrophils % (A) 77.9 %; Platelet Count 267 X 10*3/uL (140-440); RBC 4.03 X 10*6/uL (4.10-5.20); RDW 12.3 % (11.5-14.5)
[2020-04-01] MEDS: ONDANSETRON 4 MG/2 ML VIAL IVP PRN (10:45)
[2020-04-01] MEDS: diazePAM 5 MG TAB PO PRN ×2 (11:28→23:28)
[2020-04-01 11:37] LABS: African American GFR (CKD) 117.1 (60.0-200.0); Anion Gap 5.9 mmol/L (4.00-12.00); BUN/Creat Ratio 12.86 Ratio (12.00-20.00); Calcium 8.3 mg/dL (8.7-10.3); Carbon Dioxide 25.1 mmol/L (21.6-31.8)
[2020-04-01] MEDS ORDERED: OXYBUTYNIN 15 MG TAB.ER.24 PO SCH (16:00)
[2020-04-01] MEDS: LACTATED RINGERS 1,000 ML IV SCH (18:52)
[2020-04-01] MEDS: FAMOTIDINE 20 MG TAB PO SCH (21:20)
[2020-04-01] MEDS: TAMSULOSIN 0.4 MG CAP.ER.24H PO SCH (21:20)
--- NOTE | 2020-04-01 21:34 | P.CONS ---
History of Present Illness - Reason for Consult Consult date: 04/01/20 Medical management - Chief Complaint L3-L4 decompression surgery - History of Present Illness Patient is a 49-year-old female with a known history of muscle spasms and weakness in both legs, numbness of feet, spinal stenosis, bulging disc and scoliosis was admitted to the hospital for laminectomy and decompression L3 and L4. Patient tolerated the procedure well. Currently denied any tingling sensation in the legs. No complaints of chest pain or shortness of breath. Postoperatively patient is hypotensive with a blood pressure 94/60.Patient is slightly nauseous since morning. Denies any complaints of abdominal pain. No headache or dizziness or lightheadedness. Patient is being current on IV hydration Review of Systems Constitutional: Patient denies any fever or chills . No generalized weakness or weight loss. Abdomen: Patient denied nausea vomiting and diarrhea and abdominal pain. Cardiovascular: Patient denies any chest pain or short of breath no palpitations. Respiratory: patient denied any cough or sputum production. No shortness of breath Neurologic: Patient denied any numbness or tingling headache. Musculoskeletal: Patient denies any complaints of joint swelling or deformity. Skin: Negative Psychiatric: Negative Endocrine: No heat or cold intolerance. No recent weight gain. Genitourinary: No dysuria or hematuria. All other 14 point ROS negative except the above Past Medical History Past Medical History: Musculoskeletal Disorder Additional Past Medical History / Comment(s): MS-muscle spasms & weakness both legs, left leg is worse, numbness feet-not sure if is from MS or back, bulging disc & scoliosis History of Any Multi-Drug Resistant Organisms: None Reported Past Surgical History: Appendectomy, Section, Uterine Ablation Additional Past Surgical History / Comment(s): exploratory Lap Past Anesthesia/Blood Transfusion Reactions: Motion Sickness, Postoperative Nausea & Vomiting (PONV) Past Psychological History: No Psychological Hx Reported Smoking Status: Never smoker Past Alcohol Use History: None Reported Past Drug Use History: None Reported - Past Family History Father Family Medical History: Cancer Medications and Allergies Home Medications Medication Instructions Recorded Confirmed Type Multivitamins, Thera [Multivitamin 1 tab PO DAILY 09/11/19 03/26/20 History (formulary)] Oxybutynin ER [Ditropan Xl] 15 mg PO DAILY 09/11/19 03/26/20 History Lion's Ryan 1 tab PO DAILY 03/26/20 03/26/20 History Turmeric Root Extract [Turmeric] 500 mg PO DAILY 03/26/20 03/26/20 History traMADol HCL [Ultram] 50 mg PO Q6HR PRN 03/29/20 03/29/20 History Allergies Allergy/AdvReac Type Severity Reaction Status Date / Time codeine Allergy Swelling Verified 03/26/20 14:22 Physical Exam Vitals: Vital Signs Temp Pulse Resp BP Pulse Ox 04/01/20 05:24 98.9 F 89 16 99/59 94 L 03/31/20 22:10 83 16 03/31/20 21:54 98.2 F 83 16 130/68 03/31/20 17:27 86 17 116/74 96 03/31/20 17:12 67 106/65 03/31/20 16:56 71 122/77 03/31/20 16:42 76 133/69 03/31/20 16:26 72 131/76 95 03/31/20 15:56 61 16 101/63 100 03/31/20 15:41 60 17 100/52 100 03/31/20 15:26 64 16 100/52 100 03/31/20 15:11 59 L 16 100/53 100 03/31/20 14:56 64 16 112/64 100 03/31/20 14:41 61 17 110/61 100 03/31/20 14:26 64 16 110/65 100 03/31/20 14:11 97.6 F 73 14 122/80 100 03/31/20 10:22 97.6 F 59 L 20 135/73 100 Intake and Output 03/31/20 04/01/20 04/01/20 22:59 06:59 14:59 Intake Total 950 1660 Output Total 50 400 Balance 900 1260 Intake: IV 700 Intake, IV Titration 250 1000 Amount Sodium Chloride 0.9% 1, 150 900 000 ml @ 75 mls/hr IV . [id number] [facility] Rx#:[id number] ceFAZolin 2 gm In Sodium 100 100 Chloride 0.9% 50 ml @ 100 mls/hr IVPB Q8H [facility] Rx#: [id number] Oral 660 Output: Urine 50 400 PHYSICAL EXAMINATION: Patient is lying in the bed comfortably, no acute distress, awake alert and oriented.. HEENT: Normocephalic. Neck is supple. Pupils reactive. Nostrils clear. Oral cavity is moist. Ears reveal no drainage. Neck reveals no JVD, carotid bruits, or thyromegaly. CHEST EXAMINATION: Trachea is central. Symmetrical expansion. Lung castillo clear to auscultation and percussion. CARDIAC: Normal S1, S2 with no gallops. No murmurs ABDOMEN: Soft. Bowel sounds normal. No organomegaly. No abdominal bruits. Extremities: reveal no edema. No clubbing or cyanosis Neurologically awake, alert, oriented x3 with well-coordinated movements. No focal deficits noted Skin: No rash or skin lesions. Psychiatric: Coperative. Nonsuicidal Musculoskeletal: No joint swelling or deformity. Normal range of motion. Results CBC & Chem 7: 04/01/20 07:55 04/01/20 07:55 Assessment and Plan Assessment: Status post L3 and L4 decompression and laminectomy postoperative day 1 Leukocytosis likely due to postoperative inflammation. History of MS with muscle spasms and weakness in both legs Spinal stenosis and scoliosis DVT prophylaxis with SCDs not on heparin due to spinal surgery Plan: Continue with current pain management, bowel regimen. Increase incentive spirometry. Patient will be started on symptomatic management for nausea and GI prophylaxis with Pepcid 20 mg twice daily. Continue with IV hydration and monitor blood pressure closely and avoid IV narcotic pain medications when possible. Further recommendations based on the clinical course. Thank you for your consult. Time with Patient: Greater than 30
[2020-04-02] MEDS: HYDROcodone/APAP 5-325MG 1 EACH TAB PO PRN ×4 (00:38→20:43)
[2020-04-02] MEDS: CYCLOBENZAPRINE 10 MG TAB PO PRN ×3 (00:39→15:59)
[2020-04-02] MEDS: HYDROmorphone 1 MG/ML 1 ML SYRINGE IVP PRN ×3 (01:14→12:22)
[2020-04-02] MEDS: SODIUM CHLORIDE 0.9% 1,000 ML IV SCH (05:16)
[2020-04-02] MEDS: SENNOSIDES-DOCUSATE SODIUM 1 EACH TAB PO SCH (07:19)
[2020-04-02] MEDS: FAMOTIDINE 20 MG TAB PO SCH ×2 (07:20→20:23)
[2020-04-02] MEDS: TAMSULOSIN 0.4 MG CAP.ER.24H PO SCH (07:20)
--- NOTE | 2020-04-02 08:28 | P.PN ---
Progress Note - Text Progress Note Date: 04/02/20 Orthopedic Spine: History of present illness: Patient is a pleasant 49-year-old female who is seen and examined at the bedside following posterior lateral decompression and fusion performed Sunday. Patient states they are doing okay postsurgically. She was having some difficulty with residual post void with retained urine after bladder scan. Maguire catheter was reinserted yesterday. Medicine started the patient on Flomax. Nursing states medicine is planning for catheter to remain intact until tomorrow, 04/03/2020, at which time they may plan to discontinue the Maguire catheter to see if the patient can void on her own. She has been able to ambulate some with physical therapy with the aid of a rolling walker. She has been experiencing some spasms in her lumbar spine and left thigh. She has difficulty rolling over in bed because it exacerbates her back pain. Currently does not complain of nausea, vomiting, fever, or chills. Patient states pain has been adequately controlled. Patient is eating and drinking freely without difficulty. Patient's continues to be seen and examined by medicine. Patient has a history of multiple sclerosis. Physical Exam Lumbar Fusion: Status post surgical day number 2 Patient is awake, alert, and oriented 3 Vital signs stable Good chest excursion with deep inspiration and expiration Patient has difficulty rolling over in bed Dorsiflexion, plantarflexion, and extensor hallucis longus positive sustained bilaterally No signs or symptoms of DVT; no calf pain; pneumatic cuffs intact bilateral lower extremities Dressing is clean, dry, and intact; no erythema, purulence, or signs of infection Evidence of tattoo over the left lower extremity at the thigh and foot Neurovascularly intact bilaterally lower extremities Maguire catheter intact Assessment: Status post L3 4 minimally invasive posterior lateral decompression and fusion with transforaminal lumbar interbody fusion Low back pain Lower extremity spasm Urinary postvoid retention History of multiple sclerosis Plan: 1. Ambulate as tolerated; work with Physical Therapy to increase mobilization; prescription is written, signed, and provided to case management for a rolling walker; patient would benefit from using a rolling walker while working with physical therapy to aid in ambulation 2. Continue pain control with IV and oral medications 3. Dressings to remain intact with Optifoam; patient may shower with dressing is intact 4. Medical management can continue to manage patient for patient's other medical diagnoses including multiple sclerosis and post void residual urine; Maguire catheter intact with patient started on Flomax; current plan is for Maguire catheter be discontinued tomorrow to test urinary output 5. Patient is able to eat and drink on her own without difficulty. We will plan to discontinue IV fluids at this time. 6. We will continue to follow the patient closely; depending on the patient's progress, we may plan for the patient to be discharged home in the next 1-2 days 7. Patient can follow-up with Blake Sheikh PA-C or Dr. Harrison Dao at [facility] in 2-3 weeks following discharge
--- NOTE | 2020-04-02 10:29 | XR ---
EXAMINATION TYPE: XR chest 1V portable DATE OF EXAM: 04/02/2020 HISTORY: Shortness of breath. COMPARISON: 03/15/2020 TECHNIQUE: Single view of the chest is submitted. FINDINGS: There is no evidence for focal infiltrate. The heart is stable. Hilar and mediastinal structures are within normal limits. Degenerative changes are seen of the dorsal spine. IMPRESSION: 1. Chronic changes without evidence for acute pulmonary disease.
[2020-04-02] MEDS: diazePAM 5 MG TAB PO PRN (12:22)
[2020-04-02 13:49] LABS: Basophils # (A) 0.07 X 10*3/uL (0.00-0.10); Basophils % (A) 0.6 %; Eosinophils # (A) 0.08 X 10*3/uL (0.04-0.35); Eosinophils % (A) 0.7 %; HCT 35.6 % (37.2-46.3); HGB 11.4 g/dL (12.0-15.0); Lymphocytes # (A) 1.79 X 10*3/uL (0.90-5.00); MCH 28.4 pg (27.0-32.0); MCV 88.8 fL (80.0-97.0); Mean Platelet Volume 10.5 fL (9.5-12.2); Monocytes % (A) 9.2 %; Neutrophils # (A) 8.88 X 10*3/uL (1.80-7.70); Neutrophils % (A) 74.1 %; Platelet Count 266 X 10*3/uL (140-440); RBC 4.01 X 10*6/uL (4.10-5.20); RDW 12.7 % (11.5-14.5); WBC 11.97 X 10*3/uL (4.50-10.00)
--- NOTE | 2020-04-02 21:33 | P.PN ---
Subjective Progress Note Date: 04/02/20 Principal diagnosis: L3-L4 decompression surgery Patient is a 49-year-old female with a known history of muscle spasms and weakness in both legs, numbness of feet, spinal stenosis, bulging disc and scoliosis was admitted to the hospital for laminectomy and decompression L3 and L4. Patient tolerated the procedure well. Currently denied any tingling sensation in the legs. No complaints of chest pain or shortness of breath. Postoperatively patient is hypotensive with a blood pressure 94/60.Patient is slightly nauseous since morning. Denies any complaints of abdominal pain. No headache or dizziness or lightheadedness. Patient is being current on IV hydration 04/02/2020 Patient is currently lying in the bed. Still complains of back pain. Patient did have urinary retention overnight and was placed with Maguire catheter. No complaints of abdominal pain. Patient is able to pass small amount of flatus but no bowel movement today. Patient was encouraged with incentive spirometry and ambulation. Laboratory data showed WBC count trending down to 11.9 and hemoglobin 11.4 No complaints of chest pain or shortness of breath. No fever no chills. Blood pressure is 100/ 68 mm Hg. Current medications reviewed. Objective - Vital Signs Vital signs: Vital Signs Temp 98.4 F 04/02/20 16:40 Pulse 96 04/02/20 16:40 Resp 18 04/02/20 16:40 BP 100/68 04/02/20 16:40 Pulse Ox 100 04/02/20 16:40 Intake & Output 04/02/20 04/02/20 04/03/20 06:59 18:59 06:59 Intake Total 1015 2730 Output Total 1850 900 Balance -835 1830 Intake: Intake, IV Titration 725 150 Amount Sodium Chloride 0.9% 1, 725 150 000 ml @ 75 mls/hr IV . [id number] [facility] Rx#:[id number] Oral 290 2580 Output: Urine 1850 900 Straight 1000 Uretheral (Maguire) 850 Other: Voiding Method Toilet Indwelling Catheter # Voids 1 1 - Exam PHYSICAL EXAMINATION: Patient is lying in the bed comfortably, no acute distress, awake alert and oriented.. HEENT: Normocephalic. Neck is supple. Pupils reactive. Nostrils clear. Oral cavity is moist. Ears reveal no drainage. Neck reveals no JVD, carotid bruits, or thyromegaly. CHEST EXAMINATION: Trachea is central. Symmetrical expansion. Lung castillo clear to auscultation and percussion. CARDIAC: Normal S1, S2 with no gallops. No murmurs ABDOMEN: Soft. Bowel sounds normal. No organomegaly. No abdominal bruits. Extremities: reveal no edema. No clubbing or cyanosis Neurologically awake, alert, oriented x3 with well-coordinated movements. No focal deficits noted Skin: No rash or skin lesions. Psychiatric: Coperative. Nonsuicidal Musculoskeletal: No joint swelling or deformity. Normal range of motion. - Labs CBC & Chem 7: 04/02/20 06:40 04/01/20 07:55 Labs: Abnormal Lab Results - Last 24 Hours (Table) 04/02/20 Range/Units 06:40 WBC 11.97 H (4.50-10.00) X 10*3/uL RBC 4.01 L (4.10-5.20) X 10*6/uL Hgb 11.4 L (12.0-15.0) g/dL Hct 35.6 L (37.2-46.3) % Immature Gran # 0.05 H (0.00-0.04) X 10*3/uL Neutrophils # 8.88 H (1.80-7.70) X 10*3/uL Monocytes # 1.10 H (0.20-1.00) X 10*3/uL Assessment and Plan Assessment: Status post L3 and L4 decompression and laminectomy postoperative day 2 Leukocytosis likely due to postoperative inflammation. improved. Urinary retention. Placed on Maguire catheter. History of MS with muscle spasms and weakness in both legs Spinal stenosis and scoliosis DVT prophylaxis with SCDs not on heparin due to spinal surgery Plan: Continue with current pain management, bowel regimen. Increase incentive spirometry. Patient was started on symptomatic management for nausea and GI prophylaxis with Pepcid 20 mg twice daily. Continue with IV hydration and monitor blood pressure closely and avoid IV narcotic pain medications when possible. Further recommendations based on the clinical course. Time with Patient: Greater than 30
[2020-04-03] MEDS: diazePAM 5 MG TAB PO PRN (00:08)
[2020-04-03] MEDS: HYDROmorphone 1 MG/ML 1 ML SYRINGE IVP PRN ×5 (03:03→21:57)
[2020-04-03] MEDS: ONDANSETRON 4 MG/2 ML VIAL IVP PRN (04:59)
[2020-04-03] MEDS: HYDROcodone/APAP 5-325MG 1 EACH TAB PO PRN (05:26)
[2020-04-03] MEDS: TAMSULOSIN 0.4 MG CAP.ER.24H PO SCH (09:19)
[2020-04-03] MEDS: FAMOTIDINE 20 MG TAB PO SCH ×2 (09:19→21:57)
[2020-04-03] MEDS: SENNOSIDES-DOCUSATE SODIUM 1 EACH TAB PO SCH (09:19)
--- NOTE | 2020-04-03 10:38 | P.DS ---
Providers Date of admission: 04/03/20 08:10 Expected date of discharge: 04/03/20 Attending physician: Juan Dao Consults: 04/01/20 08:04 Consult Physician Routine Consulting Provider: Adolph Osborn Consult Reason/Comments: medical Do you want consulting provider notified?: Already Contacted Primary care physician: Migue Jeffery - Discharge Diagnosis(es) (1) Lumbar spinal stenosis Current Visit: Yes Status: Acute (2) Lumbar facet arthropathy Current Visit: Yes Status: Acute (3) Lumbar degenerative disc disease Current Visit: Yes Status: Acute (4) Lumbar back pain with radiculopathy affecting lower extremity Current Visit: Yes Status: Acute (5) Degenerative scoliosis Current Visit: Yes Status: Acute (6) Multiple sclerosis Current Visit: Yes Status: Acute Hospital Course: This is a pleasant 49-year-old female who presented with L3-4 spinal canal stenosis, facet arthropathy, and asymmetric degenerative disc disease with low back pain, lower extremity radiculopathy, and degenerative scoliosis who failed outpatient conservative therapy. She was admitted for an L3-4 minimally invasive posterior lateral decompression and fusion with transforaminal lumbar interbody fusion. She has continued to improve postoperatively. She is able to ambulate the hallways with assistance of physical therapy with the assistance of a rolling walker. Prescription was previously written and provided to her case management for a rolling walker which has been delivered to the patient. Her low back pain and lower extremity radiculopathy symptoms are medically controlled. She does have some spasm over the left thigh. Postoperatively she had frequent urination without complete voiding. Medicine had started the patient on Flomax and place Maguire catheter. They're planning for discontinuation of the Maguire catheter today. If the patient is able to urinate on her own independently without difficulty she feels she is ready for discharge home today. We discussed her discharge is pending clearance by medicine and her ability to void without difficulty. Overall, the patient tolerated the procedure well and did well postoperatively. Condition on day of discharge stable. Patient will be discharged home. Patient was cleared preoperatively for surgery by . Patient currently denies any nausea, vomiting, fever, or chills. Patient is eating without difficulty. Patient has not had a bowel movement postoperatively but states that is not abnormal for her. Her abdomen is soft. She denies abdominal pain. She is passing gas without difficulty. Patient may shower Optifoam dressing intact. Patient may remove Optifoam dressing in 3 days and shower without a dressing at that time. Patient should refrain from driving until at least after their first follow-up appointment in the office. Patient should avoid excessive bending, lifting, and twisting; no lifting greater than 10 pounds. MAPS has been reviewed today, 140, with an Overall Overdose Risk Score of . An "Opiod Start Talking" Form has been signed and placed in the patient's chart. A prescription has been written for Scio 5 mg/325 mg 1-2 tabs every 6 hours as needed for pain, dispensed #56. Patient should discontinue previously prescribed tramadol while taking Scio 5 mg/325 mg Patient is also given a prescription for cyclobenzaprine 10 mg 1 tab 3 times a day as needed for muscle spasm, dispensed #60 and Senokot S1 tab by mouth twice a day as needed for constipation, dispensed #60. Patient's other medical diagnoses include multiple sclerosis and frequent urination without complete voiding. Physical Exam on day of discharge: Status post surgical day number 3 Patient is awake, alert, and oriented 3 Vital signs stable Good chest excursion with deep inspiration and expiration Patient is able to roll over in bed independently Dorsiflexion, plantarflexion, and extensor hallucis longus positive sustained bilaterally No signs or symptoms of DVT; no calf pain; pneumatic cuffs currently intact bilateral lower extremities Dressing is clean, dry, and intact; no erythema, purulence, or signs of infection Evidence of tattoo over the left lower extremity at the thigh and foot and/or the right ankle Neurovascularly intact bilaterally lower extremities Maguire catheter intact Procedures: L3-4 minimally invasive posterior lateral decompression and fusion with transforaminal lumbar interbody fusion Patient Condition at Discharge: Stable Plan - Discharge Summary Discharge Rx Participant: No New Discharge Prescriptions: New Cyclobenzaprine [Flexeril] 10 mg PO TID PRN #60 tab PRN Reason: Muscle Spasm HYDROcodone/APAP 5-325MG [Scio 5] 1 - 2 each PO Q6HR PRN #56 tab PRN Reason: Pain Sennosides-Docusate Sodium [Senokot-S] 1 tab PO BID PRN #60 tablet PRN Reason: Constipation No Action Multivitamins, Thera [Multivitamin (formulary)] 1 tab PO DAILY Oxybutynin ER [Ditropan Xl] 15 mg PO DAILY Turmeric Root Extract [Turmeric] 500 mg PO DAILY Oleg Davis 1 tab PO DAILY traMADol HCL [Ultram] 50 mg PO Q6HR PRN PRN Reason: Pain Discharge Medication List Multivitamins, Thera [Multivitamin (formulary)] 1 tab PO DAILY 09/11/19 [History] Oxybutynin ER [Ditropan Xl] 15 mg PO DAILY 09/11/19 [History] Andriaon's Ryan 1 tab PO DAILY 03/26/20 [History] Turmeric Root Extract [Turmeric] 500 mg PO DAILY 03/26/20 [History] traMADol HCL [Ultram] 50 mg PO Q6HR PRN 03/29/20 [History] Cyclobenzaprine [Flexeril] 10 mg PO TID PRN #60 tab 04/03/20 [Rx] HYDROcodone/APAP 5-325MG [Scio 5] 1 - 2 each PO Q6HR PRN #56 tab 04/03/20 [Rx] Sennosides-Docusate Sodium [Senokot-S] 1 tab PO BID PRN #60 tablet 04/03/20 [Rx] Follow up Appointment(s)/Referral(s): Juan Dao DO [Doctor of Osteopathic Medicine] - 2 Weeks [facility] [NON-STAFF] - 1 Week Patient Instructions/Handouts: *Surgery [facility] - Scopalamine Patch Instructions Activity/Diet/Wound Care/Special Instructions: Keep surgical sites clean. May shower with waterproof Optifoam intact. Do not soak in a tub. After 72 hours postoperatively, patient May remove dressing and then may shower with area uncovered. May ambulate as tolerated. Avoid heavy or rigorous activity. No repetitive bending twisting or lifting. Patient may use a rolling walker to aid in ambulation as needed Take medications as prescribed. No overhead work. Discharge Disposition: HOME SELF-CARE
[2020-04-03 11:54] LABS: Appearance,Urine Clear (Clear); Bilirubin,Urine Negative (Negative); Blood,Urine Negative (Negative); Color,Urine Light Yellow; Glucose,Urine (UA) Negative (Negative); Ketones,Urine Negative (Negative); Leukocyte Esterase,Urine Trace (Negative); Nitrite,Urine Negative (Negative); PH, Urine 6.5 (5.0-8.0); Protein,Urine Negative (Negative); RBC,Urine 1 /hpf (0-5); Specific Gravity,Urine 1.006 (1.001-1.035); Urobilinogen,Urine <2.0 mg/dL (<2.0); WBC,Urine 1 /hpf (0-5)
[2020-04-03 12:04] VITALS: RESP 16
[2020-04-04] MEDS: HYDROcodone/APAP 5-325MG 1 EACH TAB PO PRN ×2 (00:54→08:23)
[2020-04-04 05:41] VITALS: BP 113/77; PULSE 82; TEMP 97.9
[2020-04-04] MEDS: HYDROmorphone 1 MG/ML 1 ML SYRINGE IVP PRN ×2 (05:42→12:48)
[2020-04-04] MEDS: FAMOTIDINE 20 MG TAB PO SCH (08:24)
[2020-04-04] MEDS: TAMSULOSIN 0.4 MG CAP.ER.24H PO SCH (08:24)
[2020-04-04] MEDS: SENNOSIDES-DOCUSATE SODIUM 1 EACH TAB PO SCH (08:24)
[2020-04-04] MEDS: CYCLOBENZAPRINE 10 MG TAB PO PRN (08:24)
--- NOTE | 2020-04-06 21:10 | CDI ---
Documentation Clarification Form Date: 04/07/2020 From: Germán Skaggs Phone: If you have a question about this query, please contact Tiffanie Sosa, Supervisor [employer] at [phone] between 8am and 5pm. Admit Date: 04/03/2020 08:10:00 AM Patient Name: Elina Berman Visit Number: [id number] Discharge Date: 04/04/2020 02:05:00 PM ATTENTION: The Clinical Documentation Specialists (CDI) and [facility] Coding Staff appreciate your assistance in clarifying documentation. Please respond to the clarification below the line at the bottom and electronically sign. The CDI & [facility] Coding staff will review the response and follow-up if needed. Please note: Queries are made part of the Legal Health Record. If you have any questions, please contact the author of this message via ITS. Dr. Amira Fernandez MD., Hypotension is documented as "Postoperatively patient is hypotensive with a blood pressure 94/60" in your consult note dated on 04/01 04/02 Progress note alsos stated "Postoperatively patient is hypotensive with a blood pressure". History/Risk Factors: Multiple sclerosis., Lumbar stenosis Clinical Indicators: Degenerative scoliosis, asymmetric disc degeneration L3 4, spinal stenosis, low back pain, lower extremity radiculopathy, facet arthropathy Patients B/P: 94/60 Treatment:Patient is being current on IV hydration In your professional opinion, can you please specify the etiology of the hypotension if known? Postoperative Hypotension Iatrogenic Hypotension Other Condition, please specify Unable to determine Postoperative Hypotension MTDD
--- NOTE | 2020-04-15 11:43 | P.PN ---
Subjective Progress Note Date: 04/03/20 Principal diagnosis: L3-L4 decompression surgery Patient is a 49-year-old female with a known history of muscle spasms and weakness in both legs, numbness of feet, spinal stenosis, bulging disc and scoliosis was admitted to the hospital for laminectomy and decompression L3 and L4. Patient tolerated the procedure well. Currently denied any tingling sensation in the legs. No complaints of chest pain or shortness of breath. Postoperatively patient is hypotensive with a blood pressure 94/60.Patient is slightly nauseous since morning. Denies any complaints of abdominal pain. No headache or dizziness or lightheadedness. Patient is being current on IV hydration 04/02/2020 Patient is currently lying in the bed. Still complains of back pain. Patient did have urinary retention overnight and was placed with Maguire catheter. No complaints of abdominal pain. Patient is able to pass small amount of flatus but no bowel movement today. Patient was encouraged with incentive spirometry and ambulation. Laboratory data showed WBC count trending down to 11.9 and hemoglobin 11.4 No complaints of chest pain or shortness of breath. No fever no chills. Blood pressure is 100/ 68 mm Hg. 04/03/2020 Patient is currently lying in the bed comfortably. No complaints of chest pain or shortness of breath. Back pain is better. Patient did have small bowel movement. Maguire catheter has been discontinued but the patient was retaining urine. Continue with Flomax and encourage ambulation and incentive spirometry. Anticipate discharge in the next 24 hours. Patient has been afebrile. Urinalysis showed no evidence of infection. No headache or dizziness or lightheadedness. Current medications reviewed. Objective - Vital Signs Vital signs: Vital Signs Temp 98.3 F 04/03/20 04:49 Pulse 93 04/03/20 04:49 Resp 17 04/03/20 04:49 BP 130/89 04/03/20 04:49 Pulse Ox 99 04/03/20 04:49 Intake & Output 04/02/20 04/03/20 04/03/20 18:59 06:59 18:59 Intake Total 2730 Output Total 900 1800 700 Balance 1830 -1800 -700 Intake: Intake, IV Titration 150 Amount Sodium Chloride 0.9% 1, 150 000 ml @ 75 mls/hr IV . [id number] [facility] Rx#:[id number] Oral 2580 Output: Urine 900 1800 700 Uretheral (Maguire) 1500 Other: Voiding Method Indwelling Catheter Indwelling Catheter Indwelling Catheter # Voids 1 - Exam PHYSICAL EXAMINATION: Patient is lying in the bed comfortably, no acute distress, awake alert and oriented.. HEENT: Normocephalic. Neck is supple. Pupils reactive. Nostrils clear. Oral cavity is moist. Ears reveal no drainage. Neck reveals no JVD, carotid bruits, or thyromegaly. CHEST EXAMINATION: Trachea is central. Symmetrical expansion. Lung castillo clear to auscultation and percussion. CARDIAC: Normal S1, S2 with no gallops. No murmurs ABDOMEN: Soft. Bowel sounds normal. No organomegaly. No abdominal bruits. Extremities: reveal no edema. No clubbing or cyanosis Neurologically awake, alert, oriented x3 with well-coordinated movements. No focal deficits noted Skin: No rash or skin lesions. Psychiatric: Coperative. Nonsuicidal Musculoskeletal: No joint swelling or deformity. Normal range of motion. - Labs CBC & Chem 7: 04/02/20 06:40 04/01/20 07:55 Labs: Abnormal Lab Results - Last 24 Hours (Table) 04/02/20 Range/Units 06:40 WBC 11.97 H (4.50-10.00) X 10*3/uL RBC 4.01 L (4.10-5.20) X 10*6/uL Hgb 11.4 L (12.0-15.0) g/dL Hct 35.6 L (37.2-46.3) % Immature Gran # 0.05 H (0.00-0.04) X 10*3/uL Neutrophils # 8.88 H (1.80-7.70) X 10*3/uL Monocytes # 1.10 H (0.20-1.00) X 10*3/uL Assessment and Plan Assessment: Status post L3 and L4 decompression and laminectomy postoperative day 2 Leukocytosis likely due to postoperative inflammation. improved. Urinary retention. Placed on Maguire catheter and removed today History of MS with muscle spasms and weakness in both legs Spinal stenosis and scoliosis DVT prophylaxis with SCDs not on heparin due to spinal surgery Plan: Continue with current pain management, bowel regimen. Increase incentive spirometry. Patient was started on symptomatic management for nausea and GI prophylaxis with Pepcid 20 mg twice daily. Continue with IV hydration and monitor blood pressure closely and avoid IV narcotic pain medications when possible. Further recommendations based on the clinical course. Time with Patient: Greater than 30
--- NOTE | 2020-04-15 11:48 | P.PN ---
Subjective Progress Note Date: 04/04/20 Principal diagnosis: L3-L4 decompression surgery Patient is a 49-year-old female with a known history of muscle spasms and weakness in both legs, numbness of feet, spinal stenosis, bulging disc and scoliosis was admitted to the hospital for laminectomy and decompression L3 and L4. Patient tolerated the procedure well. Currently denied any tingling sensation in the legs. No complaints of chest pain or shortness of breath. Postoperatively patient is hypotensive with a blood pressure 94/60.Patient is slightly nauseous since morning. Denies any complaints of abdominal pain. No headache or dizziness or lightheadedness. Patient is being current on IV hydration 04/02/2020 Patient is currently lying in the bed. Still complains of back pain. Patient did have urinary retention overnight and was placed with Maguire catheter. No complaints of abdominal pain. Patient is able to pass small amount of flatus but no bowel movement today. Patient was encouraged with incentive spirometry and ambulation. Laboratory data showed WBC count trending down to 11.9 and hemoglobin 11.4 No complaints of chest pain or shortness of breath. No fever no chills. Blood pressure is 100/ 68 mm Hg. 04/03/2020 Patient is currently lying in the bed comfortably. No complaints of chest pain or shortness of breath. Back pain is better. Patient did have small bowel movement. Maguire catheter has been discontinued but the patient was retaining urine. Continue with Flomax and encourage ambulation and incentive spirometry. Anticipate discharge in the next 24 hours. Patient has been afebrile. Urinalysis showed no evidence of infection. No headache or dizziness or lightheadedness. 04/04/2020 Patient is awake alert oriented x3. Denied any complaints of chest pain or shortness of breath. Ambulating with physical therapy. Back pain is better controlled. Patient did void spontaneously but was having residual urine. Patient has been taking Ditropan at home which will be discontinued. Patient was started on this medication due to prior history of urgency. Continue with Flomax and recommends to follow with urology as outpatient. Patient verbalized understanding the importance of follow-up with urology and further work-up due to her residual urine. Encourage ambulation and PT OT. Patient wishes to be discharged home today. Current medications reviewed. Objective - Vital Signs Vital signs: Vital Signs Temp 97.9 F 04/04/20 05:38 Pulse 82 04/04/20 05:38 Resp 16 04/04/20 05:38 BP 113/77 04/04/20 05:38 Pulse Ox 97 04/04/20 05:38 Intake & Output 04/03/20 04/04/20 04/04/20 18:59 06:59 18:59 Output Total 700 Balance -700 Output: Urine 700 Other: Voiding Method Indwelling Catheter Indwelling Catheter Toilet # Voids 0 1 # Bowel Movements 0 - Exam PHYSICAL EXAMINATION: Patient is lying in the bed comfortably, no acute distress, awake alert and oriented.. HEENT: Normocephalic. Neck is supple. Pupils reactive. Nostrils clear. Oral cavity is moist. Ears reveal no drainage. Neck reveals no JVD, carotid bruits, or thyromegaly. CHEST EXAMINATION: Trachea is central. Symmetrical expansion. Lung castillo clear to auscultation and percussion. CARDIAC: Normal S1, S2 with no gallops. No murmurs ABDOMEN: Soft. Bowel sounds normal. No organomegaly. No abdominal bruits. Extremities: reveal no edema. No clubbing or cyanosis Neurologically awake, alert, oriented x3 with well-coordinated movements. No focal deficits noted Skin: No rash or skin lesions. Psychiatric: Coperative. Nonsuicidal Musculoskeletal: No joint swelling or deformity. Normal range of motion. - Labs CBC & Chem 7: 04/02/20 06:40 04/01/20 07:55 Assessment and Plan Assessment: Status post L3 and L4 decompression and laminectomy postoperative day 2 Leukocytosis likely due to postoperative inflammation. improved. Urinary retention. resolved now. Post void residual History of MS with muscle spasms and weakness in both legs Spinal stenosis and scoliosis DVT prophylaxis with SCDs not on heparin due to spinal surgery Plan: Continue with current pain management, bowel regimen. Increase incentive spirometry. Patient was started on symptomatic management for nausea and GI prophylaxis with Pepcid 20 mg twice daily. Continue with IV hydration and monitor blood pressure closely and avoid IV narcotic pain medications when possible.Encourage ambulation and PT OT. Patient is being discharged home today. Time with Patient: Greater than 30
== END 2020-04-04 14:05 | disposition home or self-care (01) | DRG 455 ==
LOC: OR 09:58 → 5NMEDONC 13:58 → OR 04-01 03:29 → OBSVTOIN 04-03 08:10
PROVIDERS: ADMIT Orthopaedic Surgery Orthopaedic Surgery of the Spine; ATTEND Orthopaedic Surgery Orthopaedic Surgery of the Spine
PROC: 0SG0071 Fusion of Lumbar Vertebral Joint with Autologous Tissue Substitute, Posterior Approach, Posterior Column, Open Approach (ICD-10-PCS; principal; 2020-03-31 11:15)
PROC: 0ST20ZZ Resection of Lumbar Vertebral Disc, Open Approach (ICD-10-PCS; principal; 2020-03-31 11:15)
PROC: 00NY0ZZ Release Lumbar Spinal Cord, Open Approach (ICD-10-PCS; principal; 2020-03-31 11:15)
PROC: 01NB0ZZ Release Lumbar Nerve, Open Approach (ICD-10-PCS; principal; 2020-03-31 11:15)
PROC: 0SG00AJ Fusion of Lumbar Vertebral Joint with Interbody Fusion Device, Posterior Approach, Anterior Column, Open Approach (ICD-10-PCS; principal; 2020-03-31 11:15)
DX: M48.061 Spinal stenosis, lumbar region without neurogenic claudication (principal); M51.16 Intervertebral disc disorders with radiculopathy, lumbar region; M47.26 Other spondylosis with radiculopathy, lumbar region; M41.86 Other forms of scoliosis, lumbar region; R33.9 Retention of urine, unspecified; I95.9 Hypotension, unspecified; G35 Multiple sclerosis; Z90.49 Acquired absence of other specified parts of digestive tract; Z98.891 History of uterine scar from previous surgery; Z98.890 Other specified postprocedural states; Z80.9 Family history of malignant neoplasm, unspecified; Z88.5 Allergy status to narcotic agent
CPT/HCPCS: 71045; 72100; 80048; 81001; 81025; 85025; 86850; 86900; 86901

== ENCOUNTER 2021-09-01 16:46 | Emergency (ER) | payer BC ==
[2021-09-01 18:36] VITALS: TEMP 98
[2021-09-01] MEDS ORDERED: DIPH,PERTUS(ACELL)TETVAC-LF 0.5 ML VIAL IM ONE (18:36)
--- NOTE | 2021-09-01 18:39 | ED ---
Head Injury HPI - General Chief complaint: Head Injury Stated complaint: Fall 1515/Hit head/Laceration Time Seen by Provider: 09/01/21 18:33 Source: patient, RN notes reviewed Mode of arrival: ambulatory Limitations: no limitations - History of Present Illness Initial comments: Patient fell off her porch which is apparently the only backward onto a brick and struck the back of her head. Patient claimed head and neck pain. Patient does complain of a significant headache, however, no nausea or vomiting. Patient also complaining of pain in her back. Patient is able ambulate. Does recall the event. Has no history of blood thinners. no fever or chills, no changes in vision or hearing, no sore throat or difficulty with speech, no or shortness of breath, no abdominal pain, POSITIVE nausea but no vomiting, no changes in urination or bowel movements, no numbness or tingling,, complaining of right knee and left ankle pain., no skin rashes or lesions. No proximal or distal pain in the extremities regarding the right knee and left ankle injury. No break in skin integrity. No numbness or tingling. No gait disturbance. Follow-up as greater than 3 feet MD Complaint: head injury - Related Data Home Medications Medication Instructions Recorded Confirmed Multivitamins, Thera [Multivitamin 1 tab PO DAILY 09/11/19 03/26/20 (formulary)] Lion's Ryan 1 tab PO DAILY 03/26/20 03/26/20 Turmeric Root Extract [Turmeric] 500 mg PO DAILY 03/26/20 03/26/20 traMADol HCL [Ultram] 50 mg PO Q6HR PRN 03/29/20 03/29/20 Previous Rx's Medication Instructions Recorded Cyclobenzaprine [Flexeril] 10 mg PO TID PRN #60 tab 04/03/20 HYDROcodone/APAP 5-325MG [Revelo 5] 1 - 2 each PO Q6HR PRN #56 tab 04/03/20 Sennosides-Docusate Sodium 1 tab PO BID PRN #60 tablet 04/03/20 [Senokot-S] Tamsulosin [Flomax] 0.4 mg PO DAILY #30 cap.er.24h 04/04/20 Acetaminophen Tab [Tylenol Tab] 500 mg PO Q6H PRN #24 tablet 09/01/21 Cyclobenzaprine [Flexeril] 10 mg PO TID PRN #20 tab 09/01/21 Allergies/Adverse reactions: Allergies Allergy/AdvReac Type Severity Reaction Status Date / Time codeine Allergy Swelling Verified 09/01/21 18:36 Review of Systems ROS Statement: Those systems with pertinent positive or pertinent negative responses have been documented in the HPI. ROS Other: All systems not noted in ROS Statement are negative. Past Medical History Past Medical History: Musculoskeletal Disorder Additional Past Medical History / Comment(s): MS-muscle spasms & weakness both legs, left leg is worse, numbness feet-not sure if is from MS or back, bulging disc & scoliosis History of Any Multi-Drug Resistant Organisms: None Reported Past Surgical History: Appendectomy, Section, Uterine Ablation Additional Past Surgical History / Comment(s): exploratory Lap Past Anesthesia/Blood Transfusion Reactions: Motion Sickness, Postoperative Nausea & Vomiting (PONV) Past Psychological History: No Psychological Hx Reported Smoking Status: Never smoker Past Alcohol Use History: None Reported Past Drug Use History: None Reported - Past Family History Father Family Medical History: Cancer General Exam - General Exam Comments Initial Comments: Laceration noted to the occipital region. Limitations: no limitations General appearance: alert, in distress Head exam: Present: other (Patient has significant tenderness to the occipital region with a notable injury. Blood has matted hair. Unable to discern a laceration in the triage area. No step-off noted. Head is no cephalic atraumatic otherwise.) Eye exam: Present: normal appearance, PERRL, EOMI. Absent: scleral icterus, conjunctival injection, periorbital swelling Pupils: Present: normal accommodation ENT exam: Present: normal exam, mucous membranes moist, normal external ear exam Neck exam: Present: normal inspection, tenderness (Patient does have some tenderness both in the paraspinal and midline area of the posterior neck), full ROM (With some discomfort), other (Presented through the waiting room.). Absent: meningismus, lymphadenopathy Respiratory exam: Present: normal lung sounds bilaterally. Absent: respiratory distress, wheezes, rales, rhonchi, stridor Cardiovascular Exam: Present: regular rate, normal rhythm, normal heart sounds. Absent: systolic murmur, diastolic murmur, rubs, gallop, clicks GI/Abdominal exam: Present: soft, normal bowel sounds. Absent: distended, tenderness, guarding, rebound, rigid Extremities exam: Present: normal inspection, full ROM, tenderness (Minimal, right anterior knee and lateral aspect of left ankle. No bony point tenderness), normal capillary refill, other (Pulses intact, no break in skin integrity. Full range of motion). Absent: pedal edema, joint swelling, calf tenderness Back exam: Present: normal inspection Neurological exam: Present: alert, oriented X3, CN II-XII intact, normal gait. Absent: motor sensory deficit Expanded Patient oriented to: Present: person, place, time Speech: Present: fluid speech Cranial nerves: EOM's Intact: Normal, Gag Reflex: Normal, Tongue Deviation: Normal, Nystagmus: Normal, Facial Sensation: Normal, Facial Palsy with Forehead Movement: Normal, Facial Palsy without Forehead Movement: Normal Cerebellar function: Finger to Nose: Normal, Romberg: Normal Motor strength exam: RUE: 5, LUE: 5, RLE: 5, LLE: 5 Eye Response: (4) open spontaneously Motor Response: (6) obeys commands Verbal Response: (5) oriented Psychiatric exam: Present: normal affect, normal mood Skin exam: Present: warm, dry, intact, normal color. Absent: rash Course Vital Signs 09/01/21 18:34 Temperature 98 F Pulse Rate 70 Respiratory 16 Rate Blood Pressure 134/89 O2 Sat by Pulse 100 Oximetry Procedures - Procedures Initial comment: Scalp was cleansed thoroughly with saline. There was no wound in need of repair. Patient had a superficial abrasion overlying a mild occipital hematoma. Medical Decision Making - Medical Decision Making Dangerous mechanism injury with severe headache--Patient fell at least 3 or 4 feet off a horse and struck the back of her head on a brick. Due to this mechanism of injury and going to obtain a CT of the brain and cervical spine. Noted the patient is ambulatory and has no focal neurologic deficits. Patient does recall the injury. There is complaining of significant pain in the occipital region.Tetanus will be updated. Discussed head injury instructions in detail with the patient and her daughter. Discussed return if all parameters. All questions answered. Patient was told to return to the ER for any signs or symptoms worsen. Told to return immediately if any other problems arise. All questions answered. Treatment plan discussed. Patient in agreement Every effort has been made to ensure accuracy of this dictation. However, due to the limitations of electronic medical records and dictation devices, errors in charting still occur. Supervisor Winding Department Dr. Pena Patient met criteria for CT of the cervical spine and brain for dangerous mechanism, far greater than 3 feet as well as midline tenderness of the neck. No acute fracture or intracranial bleed on CT scanning however. - Radiology Data Radiology results: report reviewed, image reviewed Disposition Clinical Impression: Closed head injury, Contusion of scalp, Cervical strain, acute, Contusion of right knee, Ankle sprain, Scalp abrasion Disposition: HOME SELF-CARE Condition: Good Instructions (If sedation given, give patient instructions): Head Injury (ED), Contusion in Adults (ED), Abrasion (ED) Additional Instructions: Follow-up with your regular physician as directed. Return to the ER immediately if any symptoms worsen, new symptoms arise, or any other problems develop. Prescriptions: Cyclobenzaprine [Flexeril] 10 mg PO TID PRN #20 tab PRN Reason: Spasms Acetaminophen Tab [Tylenol Tab] 500 mg PO Q6H PRN #24 tablet PRN Reason: Pain Is patient prescribed a controlled substance at d/c from ED?: No Referrals: Migue Jeffery DO [Primary Care Provider] - 1-2 days Time of Disposition: 21:03
--- NOTE | 2021-09-01 20:20 | XR ---
EXAMINATION TYPE: XR chest 2V DATE OF EXAM: 09/01/2021 COMPARISON: Chest x-ray April 02, 2020 HISTORY: Chest and upper back pain after trauma injury. TECHNIQUE: Frontal and lateral views of the chest are obtained. FINDINGS: There is no focal air space opacity, pleural effusion, or pneumothorax seen. The cardiac silhouette size remains within normal limits. Postsurgical change lumbar spine partially imaged on la teral view.. Overlying bra strap present on current study. IMPRESSION: No acute process. No significant change from prior.
--- NOTE | 2021-09-01 20:21 | XR ---
EXAMINATION TYPE: XR knee complete RT DATE OF EXAM: 09/01/2021 CLINICAL HISTORY: Fall injury with pain TECHNIQUE: Three views of the right knee are obtained. COMPARISON: None. FINDINGS: There is no acute fracture/dislocation evident in the right knee. Mild to moderate narrowi ng patellofemoral and medial tibiofemoral compartments. Mild spurring medial tibiofemoral compartmen t. The overlying soft tissue appears unremarkable. IMPRESSION: There is no acute fracture or dislocation in the right knee.
--- NOTE | 2021-09-01 20:22 | XR ---
EXAMINATION TYPE: XR ankle complete LT DATE OF EXAM: 09/01/2021 CLINICAL HISTORY: Falling injury with pain TECHNIQUE: Frontal, lateral and oblique images of the left ankle are obtained. COMPARISON: None. FINDINGS: There is no acute fracture/dislocation evident in the left ankle. The ankle mortise appea rs within normal limits. Mild soft tissue swelling over the lateral malleolus. IMPRESSION: There is no acute fracture or dislocation in the left ankle.
--- NOTE | 2021-09-01 20:41 | CT ---
EXAMINATION TYPE: CT brain cspine wo con DATE OF EXAM: 09/01/2021 COMPARISON: MRI brain October 17, 2019 HISTORY: Headache and neck pain after fall CT DLP: 1394.5 mGycm. Automated Exposure Control for Dose Reduction was Utilized. TECHNIQUE: CT scan of the head and cervical spine are performed without contrast. FINDINGS: There is no acute intracranial hemorrhage, mass effect, or midline shift identified. The ventricles and sulci are within normal limits in size. Alcantar-white matter differentiation is maintain ed. The calvarium is intact. The globes are intact and the visualized sinuses are clear. Cervical spine is visualized in its entirety from C1 through upper thoracic levels and demonstrates l oss of normal cervical curvature without evidence of acute fracture or dislocation. Prevertebral sof t tissue appears within normal limits. The C1-C2 articulation is within normal limits on the coronal images. Vertebral body heights are preserved. Slight grade 1 anterolisthesis C3 on C4 and C4 on C5. Mild to moderate disc space narrowing and moderate anterior spurring C5-C6 and C6-C7 levels. Posteri or spur disc complexes efface the anterior thecal sac at these levels. Review of axial images shows m ultilevel uncovertebral facet degenerative changes contributing to multilevel bilateral neural forami nal narrowing for reference left C3-C4 and right C4-C5 levels. Thyroid gland appears within normal li mits. Lung apices show no pneumothorax. IMPRESSION: 1. There is no acute fracture or dislocation evident in the cervical spine. 2. No acute intracranial hemorrhage or midline shift is seen.
[2021-09-01] MEDS ORDERED: ACETAMINOPHEN TAB 500 MG TAB PO STA (21:02)
[2021-09-01 21:21] VITALS: BP 139/84; PULSE 79; RESP 20
== END 2021-09-01 21:21 | disposition home or self-care (01) ==
LOC: EC 16:46
DX: S16.1XXA Strain of muscle, fascia and tendon at neck level, initial encounter (principal); S93.402A Sprain of unspecified ligament of left ankle, initial encounter; S00.03XA Contusion of scalp, initial encounter; S80.01XA Contusion of right knee, initial encounter; Z23 Encounter for immunization; W13.0XXA Fall from, out of or through balcony, initial encounter
CPT/HCPCS: 70450; 71046; 72125; 90471; 90715; 99284

== ENCOUNTER → 2023-11-26 | Outpatient (CLI) | payer BC ==
--- NOTE | 2023-11-26 19:43 | MR ---
EXAMINATION TYPE: MR lumbar spine wo con DATE OF EXAM: 11/26/2023 3:16 PM CLINICAL INDICATION: Female, 53 years old with history of M54.50, M51.16, M48.062, M46.1, G35; [facility], COMPARISON: 03/31/2020, 10/17/2019 TECHNIQUE: Multi planar, multi sequence imaging was performed utilizing: T1-weighted, T2-weighted, a nd turbo inversion recovery imaging of the lumbar spine. IV Contrast: cc . (None if empty) FINDINGS: Alignment: The lumbar vertebral bodies have preserved heights and alignment. Cord: The conus medullaris and the distal spinal cord appear unremarkable with regards to their signa l intensity and morphology. Bones/Discs: Mild degeneration changes throughout the spine with osteophyte formation and facet joint arthropathy. Intervertebral disc signal is maintained. Reactive adjoining endplate edema at L5 pedic le right greater than left. T12-L1: No evidence of significant spinal canal stenosis or neural foraminal stenosis. L1-L2: No evidence of significant spinal canal stenosis or neural foraminal stenosis. L2-L3: No evidence of significant spinal canal stenosis or neural foraminal stenosis. L3-L4: Susceptibility artifact limits evaluation at this level. The spinal canal and neural foramen a ppear patent. L4-L5: Susceptibility artifact limits evaluation at this level. The spinal canal and neural foramen a ppear patent. L5-S1: The disc has a rounded posterior morphology without significant spinal canal stenosis. Facet j oint arthropathy with mild bilateral neural foraminal stenosis. No significant spinal canal or neural foraminal stenosis in the remainder of the visualized levels. Other findings: None. IMPRESSION: 1. No definitive evidence of disc herniation or significant spinal canal stenosis. 2. Surgical changes which limits evaluation at these L3 and L4 with mild disc degeneration with asso ciated osteoarthritic changes. 3. Stress reactive edema in the L5 pedicle in the right greater than left. [facility], , 11/26/2023 7:41 PM
== END | disposition home or self-care (01) ==
LOC: RADMRIMAIN 14:28
PROVIDERS: ATTEND Family Medicine
DX: M48.062 Spinal stenosis, lumbar region with neurogenic claudication (principal); M46.1 Sacroiliitis, not elsewhere classified; G35 Multiple sclerosis; M51.369 Other intervertebral disc degeneration, lumbar region without mention of lumbar back pain or lower extremity pain; R60.0 Localized edema; M47.816 Spondylosis without myelopathy or radiculopathy, lumbar region
CPT/HCPCS: 72148